=== PATIENT | male | born 1970 | race Two or more races ===

== ENCOUNTER → 2017-09-29 | Outpatient (CLI) | payer BC | LOC: M LRY 15:43 | DX: R09.89 Other specified symptoms and signs involving the circulatory and respiratory systems (principal) | CPT/HCPCS: 71046 ==

== ENCOUNTER → 2019-08-16 | Outpatient (CLI) | payer BC, OTHER ==
--- NOTE | 2019-08-21 12:38 | SLEEPCENT ---
DATE OF PROCEDURE: 08/16/2019 ORDERED BY: Swapna Armendariz Nocturnal polysomnography was performed for the titration of pressure therapy in this patient with obstructive sleep apnea syndrome and apnea-hypopnea index of 51. For testing, the patient was fit with a ResMed AirFit F30 full face mask of medium size and 4 cm of water pressure were applied to the circuit and the lights were extinguished. 7 hours and 45 minutes of data were reviewed. There were 388 minutes of sleep identified. Sleep latency was normal at 15 minutes. Rapid eye movement (REM) latency was normal at 81 minutes. Sleep architecture was good with 4-5 REM cycles. Overall sleep efficiency was 84.5%. The patient's electrocardiogram showed a sinus rhythm with an average heart rate of 48 beats per minute. Occasional PVCs were identified. Electroencephalogram (EEG) showed normal waveforms for awake and sleep. Respiratory events were fully palliated with C-PAP at a pressure of +9 and remaining measures of sleep physiology were normal. IMPRESSION: Obstructive sleep apnea syndrome (G47.33). RECOMMENDATION: Nightly use of pressure therapy at 9 cm of water.
== END ==
LOC: M SLEEP 19:49
PROVIDERS: ATTEND Nurse Practitioner Family
DX: G47.33 Obstructive sleep apnea (adult) (pediatric) (principal)

== ENCOUNTER → 2021-06-13 | Outpatient (CLI) | payer OTHER ==
[~2021-06-13] MED LIST: ASPI-1 PO; ATOR1TAB19 PO; LISI20TA33 PO; METO1TAB87 PO; NORV5TAB PO; SILD100T PO
== END ==
LOC: M LABSMTC 09:10
PROVIDERS: ATTEND Anesthesiology
DX: Z01.818 Encounter for other preprocedural examination (principal); Z11.52 Encounter for screening for COVID-19

== ENCOUNTER 2021-06-18 11:03 | Day surgery (SDC) | payer BC ==
[~2021-06-18] VITALS: Ht 177.8 cm; Wt 98.9 kg
[~2021-06-18 11:03] MED LIST changes: +NS 1,000 ML IV ONE
[2021-06-18] MEDS ORDERED: LIDOCAINE 2% 100MG/5ML SDV (FOR ANES.) As Ordered ONE (12:42)
[2021-06-18] MEDS ORDERED: propofoL 200 MG/20 ML VIAL As Ordered ONE (12:42)
--- NOTE | 2021-06-18 13:36 | ROOR ---
Patient Name: Bigg Rivera Procedure Date: 06/18/2021 1:14 PM Date of : 1970 Age: 51 Room: [facility] Gender: Male Note Status: Finalized Procedure: Total Colonoscopy to Cecum + ileoscopy Indications: Colon cancer screening in patient at increased risk: Colorectal cancer in brother Providers: Arturo Yusuf MD Referring MD: 1. NO/Unknown PCP 1. NO/Unknown PCP, Admin. Requesting Provider: Medicines: Monitored Anesthesia Care Complications: No immediate complications. Procedure: Pre-Anesthesia Assessment: - The heart rate, respiratory rate, oxygen saturations, blood pressure, adequacy of pulmonary ventilation, and response to care were monitored throughout the procedure. The Colonoscope was introduced through the anus and advanced to the terminal ileum, with identification of the appendiceal orifice and IC valve. The colonoscopy was performed without difficulty. The patient tolerated the procedure well. The quality of the bowel preparation was excellent. Findings: The perianal and digital rectal examinations were normal. Non-bleeding internal hemorrhoids were found during retroflexion. The hemorrhoids were small and Grade I (internal hemorrhoids that do not prolapse). No other significant abnormalities were identified in a careful examination of the remainder of the colon. The exam was otherwise without abnormality on direct and retroflexion views. The terminal ileum appeared normal. Impression: - Non-bleeding internal hemorrhoids. - The examination was otherwise normal on direct and retroflexion views. - The examined portion of the ileum was normal. - No specimens collected. - The exam was otherwise normal to the cecum. Recommendation: - Patient has a contact number available for emergencies. The signs and symptoms of potential delayed complications were discussed with the patient. Return to normal activities tomorrow. Written discharge instructions were provided to the patient. - High fiber diet. - Discharge patient to home. - Continue present medications. - Repeat colonoscopy in 5 years for surveillance. - Return to referring physician. - The findings and recommendations were discussed with the patient. Procedure Code(s): --- Professional --- G0105, Colorectal cancer screening; colonoscopy on individual at high risk Diagnosis Code(s): --- Professional --- Z80.0, Family history of malignant neoplasm of digestive organs K64.0, First degree hemorrhoids CPT copyright 2019 [employer] [place] [employer]. All rights reserved. The codes documented in this report are preliminary and upon loft worker pile driving review may be revised to meet current compliance requirements. Arturo Yusuf MD Arturo Yusuf MD 06/18/2021 1:35:33 PM Electronically signed by rAturo Yusuf MD Number of Addenda: 0 Note Initiated On: 06/18/2021 1:14 PM Estimated Blood Loss: Estimated blood loss: none.
[2021-06-18 13:57] VITALS: BP 112/75
== END 2021-06-18 14:00 | disposition home or self-care (01) ==
LOC: M OPP 11:03
PROVIDERS: ATTEND Internal Medicine Gastroenterology
DX: Z12.11 Encounter for screening for malignant neoplasm of colon (principal); Z80.0 Family history of malignant neoplasm of digestive organs; K64.0 First degree hemorrhoids; Z79.82 Long term (current) use of aspirin; Z79.899 Other long term (current) drug therapy

== ENCOUNTER → 2022-12-14 | Outpatient (CLI) | payer BC ==
[~2022-12-14] MED LIST changes: -NS 1,000 ML IV ONE
== END ==
LOC: M PLAIMG 08:02
PROVIDERS: ATTEND Nurse Practitioner Family
DX: R91.8 Other nonspecific abnormal finding of lung field (principal)